=== PATIENT | female | born 1945 | race Caucasian/White ===

== ENCOUNTER → 2018-01-13 | Outpatient (CLI) | payer OTHER | END | disposition home or self-care (01) | LOC: RAH 13:52 | PROVIDERS: ATTEND Internal Medicine Critical Care Medicine | DX: M17.12 Unilateral primary osteoarthritis, left knee (principal); M47.896 Other spondylosis, lumbar region; M41.86 Other forms of scoliosis, lumbar region; M16.12 Unilateral primary osteoarthritis, left hip; M85.89 Other specified disorders of bone density and structure, multiple sites; M48.061 Spinal stenosis, lumbar region without neurogenic claudication; M25.78 Osteophyte, vertebrae; M25.552 Pain in left hip | CPT/HCPCS: 72100; 72170; 73502; 73560 ==

== ENCOUNTER → 2019-08-16 | Outpatient (CLI) | payer OTHER | END | disposition home or self-care (01) | LOC: OIH 10:30 | PROVIDERS: ATTEND Internal Medicine Critical Care Medicine | DX: Z13.6 Encounter for screening for cardiovascular disorders (principal) | CPT/HCPCS: 75571 ==

== ENCOUNTER 2024-06-15 14:45 | Emergency (ER) | payer OTHER ==
[~2024-06-15] VITALS: Ht 152.4 cm; Wt 64.9 kg
[2024-06-15 16:07] LABS: BASOPHILS # (AUTO) 0.02 K/uL (0.00-0.20); BASOPHILS % (AUTO) 0.2 % (0.0-5.0); EOSINOPHILS # (AUTO) 0.02 K/uL (0.00-0.70); EOSINOPHILS % (AUTO) 0.2 % (0.0-8.0); HEMATOCRIT 32.8 % (36-48); IMMATURE GRANULOCYTE ABSOLUTE 0.38 K/uL (0-1); LYMPHOCYTES # (AUTO) 1.5 K/uL (1.0-4.8); LYMPHOCYTES % (AUTO) 16.6 % (21.0-51.0); MEAN CORPUSCULAR HEMOGLOBIN 27.7 pg (27.0-33.0); MEAN CORPUSCULAR VOLUME 86.5 fL (79-99); MONOCYTES # (AUTO) 1.2 K/uL (0.1-1.0); MONOCYTES % (AUTO) 13.1 % (3.0-13.0); NEUTROPHILS % (AUTO) 65.8 % (40.0-77.0); PLATELET COUNT (AUTO) 83 K/uL (130-400); RED BLOOD CELL COUNT(AUTO) 3.79 MIL/uL (4.00-5.50); RED CELL DISTRIBUTION WIDTH 13.2 % (11.0-15.5); WHITE BLOOD COUNT (AUTO) 9.2 K/uL (4.8-10.8)
[2024-06-15 16:17] LABS: CREATININE 0.9 mg/dL (0.5-1.0); POTASSIUM 3.9 mmol/L (3.5-5.1)
[2024-06-15 16:18] LABS: INR 1.03 (0.85-1.15); PROTHROMBIN TIME 11.1 SEC (9.6-11.6)
[2024-06-15 16:22] LABS: ALBUMIN 3.8 g/dL (3.5-5.0); BILIRUBIN,DIRECT 0.2 mg/dL (0.0-0.3); BILIRUBIN,TOTAL 0.9 mg/dL (0.2-1.0)
[2024-06-15 16:26] LABS: HEMOGLOBIN A1C 5.6 % (4.0-6.0)
--- NOTE | 2024-06-15 17:01 | EKG ---
[facility] Test Date: 2024-06-15 Test Time: 17:01:00 Pat Name: ANA CAMPOS Department: ED Room: Gender: F Hat Checker: [birth year] : 1945 Requested By: ADITI MORROW Order Number: [id number] Reading MD: Ruddy Beltran Measurements Intervals [place] Rate: 72 P: 36 DC: 185 QRS: -41 QRSD: 90 T: 43 QT: 417 QTc: 456 Interpretive Statements Sinus rhythm Inferior infarct, old No previous ECG available for comparison Electronically Signed On 06-15-2024 18:37:15 HUMAN RESOURCES PROJECT MANAGER by Ruddy Beltran Please click the below link to view image of tracing.
[2024-06-15 17:07] VITALS: BP 159/74; PULSE 74; RESP 14; TEMP 98.4; O2SAT 99
[2024-06-15 17:07] LABS: APPEARANCE,URINE CLEAR (CLEAR); BILIRUBIN,URINE NEGATIVE (NEGATIVE); COLOR,URINE COLORLESS (YELLOW); GLUCOSE, URINE (UA) NEGATIVE (NEGATIVE); KETONES,URINE NEGATIVE (NEGATIVE); LEUKOCYTE ESTERASE ,URINE NEGATIVE Leu/uL (NEGATIVE); NITRATE,URINE NEGATIVE (NEGATIVE); OCCULT BLOOD,URINE LARGE (NEGATIVE); PH,URINE 5.5 (5.0-8.0); PROTEIN,URINE NEGATIVE (NEGATIVE); UROBILINOGEN,URINE 0.2 mg/dL (0.2-1.0)
[2024-06-15 17:09] LABS: ADD UA MICROSCOPIC YES
[2024-06-15 17:11] LABS: BACTERIA,URINE RARE /HPF (None Seen); RBC,URINE 51-100 /HPF (0-1)
--- NOTE | 2024-06-15 17:15 | HMCIMG ---
ULTRASOUND OF THE PELVIS ULTRASOUND ABD VASCULAR LIMITED INDICATION: Pelvic pain COMPARISONS: None TECHNIQUE: Transabdominal real-time sonographic images were acquired earlier, and subsequently made available for review. FINDINGS: The uterus measures 11.5 x 6.0 x 11.0 cm. The endometrial thickness measures 5.4 cm. Abnormal endometrial heterogeneity, including scattered fluid and associated minimal vascularity. The right ovary measures 1.8 x 0.8 x 1.4 cm. The right ovary is normal in size, shape and echogenicity. No right adnexal masses demonstrated. Color Doppler flow is normal throughout the right ovary. Spectral Doppler analysis demonstrates a normal waveform pattern. Left ovary was not well-demonstrated. Trace physiologic amount of free fluid demonstrated within the pelvic cul-de-sac. IMPRESSION: Abnormal endometrium, some or all of which may represent a necrotic fibroid, but for which MACHINE RIGGER consult is recommended.
[2024-06-15] MEDS ORDERED: IOHEXOL-350 75 ML VIAL IV ONE (17:24)
--- NOTE | 2024-06-15 17:33 | ERN ---
General Chief Complaint: Vaginal Problems/Bleeding Stated Complaint: VAGINAL BLEEDING Time Seen by MD: 14:48 History of Present Illness Initial Comments 79-year-old female, healthy, who presents for vaginal bleeding for the last seven days. She denies any pain or cramping. She reports she had painless bleeding that was initially heavy but it has since then improving. Has been about seven days now. She denies any dizziness, chest pain, dyspnea or any other symptoms. Medical history: Hypertension PCP: Dr. Perales in [place] Allergies: Coded Allergies: No Known Allergies (Unverified Allergy, Unknown, 06/15/24) Past Medical History Past Medical History: Hypertension Past Surgical History: None ROS Dictation CONSTITUTIONAL: No chills, no fever, no weakness, no diaphoresis, no malaise. HEAD/FACE: No signs of trauma. EENT: No eye pain, no blurred vision, no tearing, no double vision, no ear pain, no ear discharge, no nose pain, no nasal congestion, no throat pain, no throat swelling, no mouth pain. RESPIRATORY: No cough, no orthopnea, no SOB, no stridor, no wheezing. CARDIOVASCULAR: No chest pain, no edema, no palpitations, no syncope. GASTROINTESTINAL/ABDOMINAL: No abdominal pain, no constipation, no diarrhea, no nausea, no vomiting. GENITOURINARY: No abnormal discharge, no dysuria, no frequent urination, no hematuria. No complaints of pain in the genitals. MUSCULOSKELETAL: No back pain, no gout, no joint pain, no joint swelling, no muscle pain, no muscle stiffness, no neck pain. INTEGUMENTARY: No change in color, no change in hair/nails, no dryness, no lesion, no lumps, no rash. NEUROLOGICAL/PSYCH: No anxiety, not depressed, no emotional problem, no headache, no numbness, no pre-existing deficit, no history of seizures, no tremors, no weakness. HEMATOLOGIC/LYMPHATIC: Not anemic, no history of blood clots, no apparent bleeding, no bruising, glands not swollen. All Systems Negative, Except as Noted. Physical Exam Physical Exam Dictation VITAL SIGNS: Reviewed. GENERAL APPEARANCE: Alert, oriented x3, no acute distress, obese. HEAD AND FACE: Non-traumatic. EYES: PERRL, pink conjunctivas, eyelid no trauma, anterior chamber clear. EARS: Pinnas intact and no signs of trauma or erythema. Ear canals clear and no discharge. TMs no erythema. NOSE: No discharge, no bleeding. OROPHARYNX: Mouth normal, teeth no caries, tongue pink. Pharynx clear, no erythema. Tonsils no exudates, no abscesses noted. Mucous membrane moist. NECK: Supple, non-tender, no thyromegaly, no masses, no JVD, no bruits. BREAST: Deferred. CHEST: No tenderness, no crepitus, no paradoxical movement, no retractions. LUNGS: Clear, well-ventilated, symmetric, no rales, no wheezing, no rhonchi, no stridor, good breath sounds bilaterally. HEART: Regular rate, regular rhythm, no murmur, no gallops. VASCULAR: No peripheral edema. ABDOMEN: Soft, positive bowel sounds, nondistended, no guarding, nontender, no rebound, no masses no hepatomegaly, no splenomegaly, no Nunez's sign, no hernias. RECTAL: Deferred. GENITAL: Deferred. NEUROLOGICAL: Normal speech, gross motor function intact, gross sensory function intact. MUSCULOSKELETAL: Neck nontender, full range of motion, back nontender, full range of motion. EXTREMITIES: Nontender, full range of motion. SKIN: Color pink, dry, no turgor, no rash, no lacerations, no abrasions, no contusions. LYMPHATICS: Deferred. Results Laboratory and Microbiology Lab and Micro Result Laboratory Tests Test 06/15/24 15:58 06/15/24 16:53 White Blood Count 9.2 K/uL (4.8-10.8) Red Blood Count 3.79 MIL/uL (4.00-5.50) L Hemoglobin 10.5 g/dL (12.0-16.0) L Hematocrit 32.8 % (36-48) L Mean Corpuscular Volume 86.5 fL (79-99) Mean Corpuscular Hemoglobin 27.7 pg (27.0-33.0) Mean Corpuscular Hemoglobin Concent 32.0 g/dL (32.0-36.0) Red Cell Distribution Width 13.2 % (11.0-15.5) Platelet Count 83 K/uL (130-400) L Mean Platelet Volume 12.2 fL (7.5-10.5) H Immature Granulocyte % (Auto) 4.1 % (0-1) H Neutrophils (%) (Auto) 65.8 % (40.0-77.0) Lymphocytes (%) (Auto) 16.6 % (21.0-51.0) L Monocytes (%) (Auto) 13.1 % (3.0-13.0) H Eosinophils (%) (Auto) 0.2 % (0.0-8.0) Basophils (%) (Auto) 0.2 % (0.0-5.0) Neutrophils # (Auto) 6.0 K/uL (1.8-7.7) Lymphocytes # (Auto) 1.5 K/uL (1.0-4.8) Monocytes # (Auto) 1.2 K/uL (0.1-1.0) H Eosinophils # (Auto) 0.02 K/uL (0.00-0.70) Basophils # (Auto) 0.02 K/uL (0.00-0.20) Absolute Immature Granulocyte (auto 0.38 K/uL (0-1) Nucleated Red Blood Cells 0.0 % (0.0-0.19) Prothrombin Time 11.1 SEC (9.6-11.6) Prothromb Time International Ratio 1.03 (0.85-1.15) Sodium Level 137 mmol/L (136-145) Potassium Level 3.9 mmol/L (3.5-5.1) Chloride Level 99 mmol/L (101-111) L Carbon Dioxide Level 32 mmol/L (21-32) Blood Urea Nitrogen 13 mg/dL (7-18) Creatinine 0.9 mg/dL (0.5-1.0) Glomerular Filtration Rate Calc 66 mL/min (>90) Random Glucose 112 mg/dL (70-105) H Hemoglobin A1c 5.6 % (4.0-6.0) Estimated Average Glucose (eAG) 114 mg/dL (70-126) Total Calcium 9.0 mg/dL (8.5-10.1) Total Bilirubin 0.9 mg/dL (0.2-1.0) Direct Bilirubin 0.2 mg/dL (0.0-0.3) Aspartate Amino Transf (AST/SGOT) 16 U/L (10-37) Alanine Aminotransferase (ALT/SGPT) 17 U/L (12-78) Alkaline Phosphatase 86 U/L (50-136) Total Creatine Kinase 48 U/L (21-232) Total Protein 7.0 g/dL (6.0-8.3) Albumin 3.8 g/dL (3.5-5.0) Urine Color COLORLESS (YELLOW) Urine Appearance CLEAR (CLEAR) Urine pH 5.5 (5.0-8.0) Urine Specific [place] 1.005 (1.001-1.031) Urine Protein NEGATIVE mg/dL (NEGATIVE) Urine Glucose (UA) NEGATIVE mg/dL (NEGATIVE) Urine Ketones NEGATIVE mg/dL (NEGATIVE) Urine Occult Blood LARGE (NEGATIVE) H Urine Nitrate NEGATIVE (NEGATIVE) Urine Bilirubin NEGATIVE mg/dL (NEGATIVE) Urine Urobilinogen 0.2 mg/dL (0.2-1.0) Urine Leukocyte Esterase NEGATIVE Jesika/uL Urine RBC 51-100 /HPF (0-1) H Urine WBC 2-5 /HPF (0-1) H Urine Bacteria RARE /HPF (None Seen) MDM CC: Vaginal bleeding x1 week Historian: Patient Comorbidities: Hypertension Limitations by social determinants of health: None Initial concern for abnormal uterine bleeding, anemia, other. The pelvic ultrasound shows an abnormal endometrium some or all of which may represent a necrotic fibroid. Patient will need a medical observer consult. Labs show hemoglobin 10.5, no shift or bands. Coags are stable Chemistries unremarkable Liver enzymes normal UA shows blood otherwise normal Patient is stable. We will follow up with Gynecology. We will give references and recommend a repeat CBC next week. Patient is agreeable. ED Course Orders Procedure Category Date Status Time Cbc With Differential LAB 06/15/24 Complete 15:41 Urinalysis Profile LAB 06/15/24 Complete 15:41 Ct Abdomen/Pelvis CT 06/15/24 Resulted W/Contrast 15:41 12 Lead Ekg Tracing- EKG 06/15/24 Complete Technical 15:41 Creatine Kinase, Total LAB 06/15/24 Complete 15:41 Basic Metabolic Panel LAB 06/15/24 Complete 15:41 Hemoglobin A1c LAB 06/15/24 Complete 15:41 Hepatic Function Panel LAB 06/15/24 Complete 15:41 Us Pelvic Non-Ob Comp US 06/15/24 Resulted 15:41 Prothrombin Time With LAB 06/15/24 Complete INR 15:41 Iohexol (Omnipaque) PHA 06/15/24 Complete 17:24 Current Medications Medications (Trade) Dose Ordered Sig/Maykel Route PRN Reason Start Time Stop Time Status Last Admin Dose Admin Iohexol (Omnipaque) 75 ml STK-MED ONCE IV 06/15/24 17:24 06/15/24 17:24 DC Vital Signs Date Time Temp Pulse Resp B/P (MAP) Pulse Ox O2 Delivery O2 Flow Rate FiO2 06/15/24 17:07 98.4 74 14 159/74 99 Room Air* 0 21 06/15/24 15:29 98.8 85 20 169/78 99 Room Air DX & DISP Disposition: Discharge Departure Impression: Primary Impression: Abnormal uterine bleeding Additional Impression: Anemia Condition: Stable Additional Instructions: You are having abnormal uterine bleeding. Your vital signs have been stable here in the ER. Your hemoglobin is 10.5. Your platelets are 83. Otherwise your CBC is normal. Your PT INR is normal. Your BMP, A1c, liver enzymes, CK, and albumin are normal. The ultrasound shows an abnormal endometrium which may represent a necrotic fibroid. This is likely causing your bleeding. As we discussed, you need to follow up with a still tender. I recommend trying Nakul Buckley or Ry Johnson. Also, if you continue to bleed this week, I recommend that you repeat a CBC. Compare your current hemoglobin level of 10.5 to the new read. If you have any concerning symptoms such as dizziness, vomiting, or very heavy bleeding, please return to the emergency department. Referrals: ENZO VELAZQUEZ MD (PCP) ADITI MORROW DO Jun 15, 2024 17:33
--- NOTE | 2024-06-15 17:43 | HMCIMG ---
CT ABDOMEN WITH CONTRAST. CT PELVIS WITH CONTRAST INDICATION: Abdominal pain and vaginal bleeding TECHNIQUE: Routine transaxial images using 5 mm slice thickness were obtained after the intravenous infusion of 100 mL of Omnipaque 350 without adverse effects. Oral contrast was not administered. Rectal contrast was not administered. Coronal and sagittal reformatted images acquired for interpretation. CT was performed with one or more of the following dose reduction techniques: Automated exposure control, adjustment of the mA and/or kV according to patient size, or use of iterative reconstruction technique. COMPARISON: None FINDINGS: ABDOMEN: Incompletely imaged cystic changes along the inferior right breast. Left breast implant detected. Heart size is normal. Very trace pericardial fluid. Visible lung bases are clear. The liver is normal in size and smooth in contour without lesions or biliary duct dilation. The spleen is normal in size without lesions. The gallbladder appears normal. The pancreas appears normal without pancreatic duct dilation. The adrenal glands appear normal. Both kidneys appear unremarkable. Cortical nephrograms are symmetric and normal in appearance bilaterally. No evidence for intra-abdominal free air or organized fluid collection. No retrocrural, intraabdominal, or retroperitoneal lymphadenopathy identified. Mild calcific plaque is noted along the abdominal aortic and iliac vessel melendrez without aneurysmal dilation or dissection. PELVIS: No evidence for free air or organized pelvic fluid collection. No significant pelvic adenopathy detected. Visualized small and large bowel loops appear unremarkable. Terminal ileum appears normal. The appendix appears normal. The urinary bladder appears unremarkable. Significantly enlarged endometrial cavity filled with blood products. Trace pelvic free fluid. Visible osseous structures are intact. IMPRESSION: Significantly enlarged endometrial cavity filled with blood products for which underlying neoplasm must be excluded. HOUSE PAINTER consult is recommended. Incompletely imaged cystic changes along the inferior right breast. Additional minor findings and pertinent negatives as reported.
== END 2024-06-15 17:50 | disposition home or self-care (01) ==
LOC: EDH 14:45
DX: D64.9 Anemia, unspecified (principal); N93.9 Abnormal uterine and vaginal bleeding, unspecified; I10 Essential (primary) hypertension
CPT/HCPCS: 99285; 74177; 76856; 83036; 82550; 80076; 80048; 85025; 85610; 81001; 36415; 93005; Q9967

== ENCOUNTER 2024-06-17 05:38 | Emergency (ER) | payer OTHER ==
[~2024-06-17] VITALS: Ht 152.4 cm; Wt 64.4 kg
--- NOTE | 2024-06-17 05:57 | ERN ---
ED Note History of Present Illness Stated Complaint: VAGINAL BLEEDING Chief Complaint: Vaginal Problems/Bleeding Time Seen by MD: 05:42 Dictation: This is a 79-year-old female who presented to the emergency room with complaints of vaginal bleeding apparently this started somewhere on 06/08/2024 associated with suprapubic pain. She was seen in the ER on 06/15 and a pelvic ultrasound was done at the time which showed a necrotic fibroid. Her hemoglobin was 10.5 at the time and she was discharged with instructions and referral to teacher private as an outpatient patient never really followed up with teacher private. She stated that the bleeding increased overnight it was red and brown with clots soaking the pad completely. Since June 08 she has been using 1 pad daily. She reports that for the past 2 days shes gone through at least 2 full pads. Prior to arrival here she feels active bleeding. Temperature 97.8 pulse 88 respirations 20 blood pressure 169/62 pulse oximetry 99% Her chronic medical problem includes hypertension which has been poorly controll ed Allergies: Coded Allergies: No Known Allergies (Unverified Allergy, Unknown, 06/15/24) Past Medical History Past Medical History: Hypertension Surgical History: Other Surgical History Other: BREAST AUGMENTATION Family History: Negative Social History: Negative History: Not Applicable RN Note Reviewed/Agreed w/PFSH: Yes Review of System Dictation As described in the history of present illness Constitutional: Negative for fever,chills, and weight loss Eyes: Negative for injury, pain,redness, and discharge ENT: Negative for injury,pain or swelling Cardiovascular: Negative for chest pain, palpitations, and edema Respiratory: Negative for shortness of breath, cough, and wheezing, Abdomen/GI: Negative for abdominal pain, nausea, vomiting, diarrhea, and constipation Back: Negative for injury and pain : Negative for injury, positive for vaginal bleeding and discharge MS/Extremity: Negative for injury and deformity Skin: Negative for rash, and discoloration Neuro: Negative for headache, weakness, numbness, tingling, and seizure Psych: Negative for suicide ideation, homicidal ideation, and hallucinations Initial Vital Sign VS Vital Signs Date Time Temp Pulse Resp B/P (MAP) Pulse Ox O2 Delivery O2 Flow Rate FiO2 06/17/24 05:40 97.9 88 20 169/62 99 Room Air 06/17/24 06:17 0 21 Physical Exam Dictation General: awake, alert, NAD the pleasant Head/Face: Normocephalic, atraumatic Eyes: PERRL, EOMI, vision at baseline ENT: oral cavity clear, TMs clear, no signs of infection Neck: Trachea midline, supple, no nuchal rigidity Cardiovascular: RRR, normal S1/S2, No MRGs, no JVD Respiratory: CTAB, no respiratory distress, No rales or wheezes Abdomen: Soft, non-tender, non-distended, normal bowel sounds, no guarding or rebound. Skin: Warm, dry, normal turgor, no rash MS/Extremity: Pulses equal, no cyanosis, neurovascular intact, FROM Neuro: COAx4, GCS 15, strength 5/5, CN 2-12 intact, normal cerebellar exam, normal gait, Psych: Normal behavior, mood, and affect normal Extremities-trace edema without any palpable cords, Homans sign is negative Results (Laboratory/Radiology) Laboratory/Radiology Laboratory Tests Test 06/17/24 06:05 06/17/24 13:10 White Blood Count 10.2 K/uL (4.8-10.8) Red Blood Count 3.21 MIL/uL (4.00-5.50) L Hemoglobin 8.9 g/dL (12.0-16.0) L 8.7 g/dL (12.0-16.0) L Hematocrit 27.4 % (36-48) L 26.0 % (36-48) L Mean Corpuscular Volume 85.4 fL (79-99) Mean Corpuscular Hemoglobin 27.7 pg (27.0-33.0) Mean Corpuscular Hemoglobin Concent 32.5 g/dL (32.0-36.0) Red Cell Distribution Width 13.2 % (11.0-15.5) Platelet Count 77 K/uL (130-400) L Mean Platelet Volume 12.8 fL (7.5-10.5) H Immature Granulocyte % (Auto) 6.7 % (0-1) H Neutrophils (%) (Auto) 63.1 % (40.0-77.0) Lymphocytes (%) (Auto) 12.6 % (21.0-51.0) L Monocytes (%) (Auto) 17.3 % (3.0-13.0) H Eosinophils (%) (Auto) 0.1 % (0.0-8.0) Basophils (%) (Auto) 0.2 % (0.0-5.0) Neutrophils # (Auto) 6.4 K/uL (1.8-7.7) Lymphocytes # (Auto) 1.3 K/uL (1.0-4.8) Monocytes # (Auto) 1.8 K/uL (0.1-1.0) H Eosinophils # (Auto) 0.01 K/uL (0.00-0.70) Basophils # (Auto) 0.02 K/uL (0.00-0.20) Absolute Immature Granulocyte (auto 0.68 K/uL (0-1) Nucleated Red Blood Cells 0.0 % (0.0-0.19) White Cell Morphology Comment See comments Sodium Level 136 mmol/L (136-145) Potassium Level 3.8 mmol/L (3.5-5.1) Chloride Level 99 mmol/L (101-111) L Carbon Dioxide Level 29 mmol/L (21-32) Blood Urea Nitrogen 18 mg/dL (7-18) Creatinine 0.9 mg/dL (0.5-1.0) Glomerular Filtration Rate Calc 66 mL/min (>90) Random Glucose 133 mg/dL (70-105) H Total Calcium 8.8 mg/dL (8.5-10.1) Labs Reviewed?: Yes ED Course ED Course Orders Procedure Category Date Status Time Vital Signs Per CPOE 06/17/24 Transmitted Routine 05:48 Cbc With Differential LAB 06/17/24 Complete 05:48 Type And Screen BBK 06/17/24 Complete 05:48 Iv Insertion CPOE 06/17/24 Transmitted 05:48 Basic Metabolic Panel LAB 06/17/24 Complete 05:48 Hemoglobin And LAB 06/17/24 Complete Hematocrit 13:00 Vital Signs Date Time Temp Pulse Resp B/P (MAP) Pulse Ox O2 Delivery O2 Flow Rate FiO2 06/17/24 11:01 98.1 75 13 147/60 97 Room Air* 0 06/17/24 09:24 98.1 71 11 153/61 99 Room Air* 0 06/17/24 07:31 98.1 73 16 140/60 95 Room Air* 0 06/17/24 06:17 69 18 139/55 97 Room Air* 0 21 11/9/24 05:40 97.9 88 20 169/62 99 Room Air We will perform diagnostic labs, advanced imaging and administer medications according to the patient's complaint. Once the results are available, will review and personally interpreted the labs to rule out any acute life- threatening emergency the trach require immediate intervention and treatment. I will then re-evaluate the patient after treatment and diagnostic exams have return to determine whether the patient requires any further testing, can safely be discharged home or need further admission to hospital for additional treatment and evaluation. 7:04 a.m. labs reviewed CBC showed a hemoglobin of 8.4 which is a significant drop from 10.9 2 days ago. Patient's platelet count is 77 today.(platelet count 83 on 06/15 2024) BNP 7 and urinalysis are still pending We will consult with teacher private for guidance on possible embolization for fibroid or perhaps any other interventions. She may need to be monitored closely with serial hemoglobins and transfuse PRBC as needed Signed out the patient to Dr. Flores at 7:00 a.m. He indicated that he reached out to [facility] and discussed ext ensively about Ms. Floyd. He stated that he had 6-8 deliveries and instructed to transfer her to his services for further management Per Dr. Flores's report arrangements have already been made for patient to be transferred out for further management of significant vaginal bleeding with a drop in hemoglobin by more than 2 points in 2 days. Medical Decision Making MDM I, Dr. Flores, took over the patient at 7:00 a.m. for re-evaluation and disposition. CC: Vaginal bleeding Historian: Patient Comorbidities: Thrombocytopenia Differential diagnosis: Abnormal uterine bleeding, anemia, fibroid, other. I performed external chart review. Two days ago patient had ultrasound that showed a necrotic fibroid which is likely causing the bleeding. At that time her hemoglobin was 10.5. Her vital signs are stable now Repeat hemoglobin 8.9. She lost almost two points over the last 48 hours. Performed a pelvic examination, she has active bleeding, very slow seeping. No other obvious abnormalities. I consulted Dr. Buckley, gynecology. Recommends transfer to [facility] for further treatment. Patient is agreeable. Problem List Problem List: (1) Abnormal uterine bleeding (2) Anemia (3) Fibroid, uterine (4) Thrombocytopenia DX & DISP Disposition: Transfer ([facility]) Departure Impression: Primary Impression: Abnormal uterine bleeding Additional Impressions: Fibroid, uterine, Anemia Condition: Stable Additional Instructions: The patient has been informed about all the diagnostic tests and procedures carried out in the emergency room today and has confirmed understanding of the results. Patient will be transferred to a facility that provides a higher level of care since such services are not accessible locally or within our immediate community. The patient is alert oriented and not experiencing any acute distress. There are no signs of sepsis and patient's hemodynamic status is s table at the moment. Medically, the patient is considered stable for transfer Patient is being transferred to Dr. Buckley, obstetrics and pole lift operator per his instructions. Referrals: ENZO VELAZQUEZ MD (PCP) MARILOU CARRANZA MD Jun 17, 2024 05:57 ADITI FLORES DO Jun 17, 2024 08:46
[2024-06-17 06:33] LABS: BASOPHILS # (AUTO) 0.02 K/uL (0.00-0.20); BASOPHILS % (AUTO) 0.2 % (0.0-5.0); EOSINOPHILS # (AUTO) 0.01 K/uL (0.00-0.70); EOSINOPHILS % (AUTO) 0.1 % (0.0-8.0); HEMATOCRIT 27.4 % (36-48); IMMATURE GRANULOCYTE ABSOLUTE 0.68 K/uL (0-1); LYMPHOCYTES # (AUTO) 1.3 K/uL (1.0-4.8); LYMPHOCYTES % (AUTO) 12.6 % (21.0-51.0); MEAN CORPUSCULAR HEMOGLOBIN 27.7 pg (27.0-33.0); MEAN CORPUSCULAR HGB CONC 32.5 g/dL (32.0-36.0); MEAN CORPUSCULAR VOLUME 85.4 fL (79-99); MONOCYTES # (AUTO) 1.8 K/uL (0.1-1.0); MONOCYTES % (AUTO) 17.3 % (3.0-13.0); NEUTROPHILS # (AUTO) 6.4 K/uL (1.8-7.7); NEUTROPHILS % (AUTO) 63.1 % (40.0-77.0); PLATELET COUNT (AUTO) 77 K/uL (130-400); RED BLOOD CELL COUNT(AUTO) 3.21 MIL/uL (4.00-5.50); RED CELL DISTRIBUTION WIDTH 13.2 % (11.0-15.5); WHITE BLOOD COUNT (AUTO) 10.2 K/uL (4.8-10.8)
[2024-06-17 07:08] LABS: CREATININE 0.9 mg/dL (0.5-1.0); POTASSIUM 3.8 mmol/L (3.5-5.1)
[2024-06-17 19:31] VITALS: BP 142/66; PULSE 74; RESP 20; TEMP 98.1; O2SAT 98
== END 2024-06-17 19:33 | disposition short-term general hospital (02) ==
LOC: EDH 05:38
DX: D64.9 Anemia, unspecified (principal); D25.9 Leiomyoma of uterus, unspecified; N93.9 Abnormal uterine and vaginal bleeding, unspecified; I10 Essential (primary) hypertension; Z98.890 Other specified postprocedural states
CPT/HCPCS: 36415; 80048; 85014; 85018; 85025; 86850; 86900; 86901